=== PATIENT | male | born 1965 | race American Indian/Alaskan Native ===

== ENCOUNTER 2018-10-14 09:29 | Emergency (ER) | payer MEDICAID, OTHER ==
[2018-10-14 09:29] VITALS: BMI 25.7
[2018-10-14 09:36] VITALS: BP 122/73; PULSE 89; RESP 18; TEMP 99; O2SAT 99
--- NOTE | 2018-10-14 11:29 | US ---
Date of service: 10/14/2018 HISTORY: swelling and pain to R testicle TECHNIQUE: Realtime sonography through the scrotum with color and doppler flow. COMPARISON: None Available. FINDINGS: RIGHT TESTICLE: Measures 4.8 x 2.6 x 3.5 cm. Normal echotexture and flow. RIGHT EPIDIDYMIS: Epididymal head measures 1 x 1.8 x 1.3 cm. Heterogeneous increased size of the right epididymis noted with increased blood flow. 0.3 x 0.3 x 0.4 centimeters cyst noted at the epididymal head. LEFT TESTICLE: Measures 4.9 x 2.2 x 3 cm. Normal echotexture and flow. LEFT EPIDIDYMIS: Epididymal head measures 0.9 x 1.1 cm. Small epididymal cyst noted measures 0.2 x 0.2 x 0.3 centimeter. Grossly unremarkable appearance with normal flow. HYDROCELE: Small bilateral hydroceles noted. VARICOCELE: None. OTHER FINDINGS: Diffuse increased thickening of the scrotal wall noted more on the right. Punctate bilateral scrotal calcification. IMPRESSION: Heterogeneous echogenicity of the right testicle and epididymis associated with diffuse hyperemia. Findings suspicious for orchitis epididymitis on the right. Small bilateral hydroceles. Scrotal wall thickening could be due to edema or infection/cellulitis.
[2018-10-14] MEDS ORDERED: cefTRIAXone (Rocephin) 250 mg Inj IM STA (11:44)
--- NOTE | 2018-10-14 11:47 | C.PDOC ---
History Of Present Illness 52 y/o male presents to the ER complaining of right testicular pain for about a month now. Patient feels that he might have an STD and states that his has been cheating on him. He reports the pain worsened for the last few days and [facility], where he got tested for STD including syphilis and HIV, which were negative. Patient states that he wasnt treated for anything and still feels pain. He denies any fever, chills, SOB, abdominal pain, constipation, penile discharge, hematuria, or dysuria. Time Seen by Provider: 10/14/18 09:40 Chief Complaint (Nursing): Male Genitourinary History Per: Patient History/Exam Limitations: no limitations Onset/Duration Of Symptoms: Days Current Symptoms Are (Timing): Still Present Past Medical History Reviewed: Historical Data, Nursing Documentation, Vital Signs Vital Signs: Last Vital Signs Temp 99 F 10/14/18 09:31 Pulse 89 10/14/18 09:31 Resp 18 10/14/18 09:31 BP 122/73 10/14/18 09:31 Pulse Ox 99 10/14/18 09:31 - Medical History PMH: Denies: Depression - [facility] Procedures CLOSED ENDOSCOPIC BIOPSY OF LARGE INTESTINE (10/09/13) Family History: States: No Known Family Hx - Social History Hx Tobacco Use: No Hx Alcohol Use: Yes (SOCIAL) Hx Substance Use: No - Immunization History Hx Tetanus Toxoid Vaccination: No Hx Influenza Vaccination: No Hx Pneumococcal Vaccination: No Review Of Systems Except As Marked, All Systems Reviewed And Found Negative. Constitutional: Negative for: Fever, Chills Respiratory: Negative for: Shortness of Breath Gastrointestinal: Negative for: Abdominal Pain, Constipation Genitourinary: Positive for: Other (Right testicular pain). Negative for: Dysuria, Hematuria, Penile Discharge Physical Exam - Physical Exam Appears: Non-toxic, No Acute Distress Skin: Warm, Dry Head: Atraumatic, Normacephalic Eye(s): bilateral: Normal Inspection Oral Mucosa: Moist Neck: Supple Cardiovascular: Rhythm Regular, No Murmur Respiratory: Normal Breath Sounds, No Rales, No Rhonchi, No Wheezing Gastrointestinal/Abdominal: Soft, No Tenderness Male Genital: Other (Enlarged tender right testicle, tenderness at the epididymis) Extremity: Bilateral: Atraumatic, Normal ROM Neurological/Psych: Oriented x3, Normal Speech ED Course And Treatment O2 Sat by Pulse Oximetry: 99 (RA) Pulse Ox Interpretation: Normal - CT Scan/US Testicular US Other Rad Studies (CT/US): Read By Radiologist, Radiology Report Reviewed CT/US Interpretation: FINDINGS: RIGHT TESTICLE: Measures 4.8 x 2.6 x 3.5 cm. Normal echotexture and flow. RIGHT EPIDIDYMIS: Epididymal head measures 1 x 1.8 x 1.3 cm. Heterogeneous increased size of the right epididymis noted with increased blood flow. 0.3 x 0.3 x 0.4 centimeters cyst noted at the epididymal head. LEFT TESTICLE: Measures 4.9 x 2.2 x 3 cm. Normal echotexture and flow. LEFT EPIDIDYMIS: Epididymal head measures 0.9 x 1.1 cm. Small epididymal cyst noted measures 0.2 x 0.2 x 0.3 centimeter. Grossly unremarkable appearance with normal flow. HYDROCELE: Small bilateral hydroceles noted. VARICOCELE: None. OTHER FINDINGS: Diffuse increased thickening of the scrotal wall noted more on the right. Punctate bilateral scrotal calcification. IMPRESSION: Heterogeneous echogenicity of the right testicle and epididymis associated with diffuse hyperemia. Findings suspicious for orchitis epididymitis on the right. Small bilateral hydroceles. Scrotal wall thickening could be due to edema or infection/cellulitis. Medical Decision Making Medical Decision Making: Plan: --Testicular US --Doryx 100 mg PO --Motrin 600 mg PO --Rocephin 250 mg IM --Tylenol PO --Zithromax PO Disposition - Disposition Disposition: HOME/ ROUTINE Disposition Time: 11:44 Condition: STABLE Prescriptions: Doxycycline Hyclate 100 mg PO BID #14 capsule Instructions: Epididymitis (DC) Forms: [employer] ([place]) - Clinical Impression Clinical Impression: Orchitis and epididymitis - Scribe Statement The provider has reviewed the documentation as recorded by the Lubna Ashford Provider Attestation: All medical record entries made by the Lubna were at my direction and personally dictated by me. I have reviewed the chart and agree that the record accurately reflects my personal performance of the history, physical exam, medical decision making, and the department course for this patient. I have also personally directed, reviewed, and agree with the discharge instructions and disposition.
== END 2018-10-14 12:35 | disposition home or self-care (01) ==
LOC: C.ER 09:29
DX: N45.3 Epididymo-orchitis (principal)
CPT/HCPCS: 76870; 96372; 99284; J0696